=== PATIENT | female | born 1960 | race Two or more races ===

== ENCOUNTER 2025-04-22 11:45 | Emergency (ER) | payer OTHER, MEDICAID, SELFPAY ==
[2025-04-22 11:46] VITALS: BMI 25.7
[2025-04-22 12:24] VITALS: BP 134/80; PULSE 88; RESP 18; TEMP 36.9; O2SAT 100
--- NOTE | 2025-04-22 12:35 | XR_ITS ---
Examination: Knee, left , 3 views Technique: Knee AP, lateral, oblique 3 views Date and time of exam: 04/22/2025 1239 hrs. Indications: Knee pain beginning several weeks ago. Findings: Severe osteopenia Advanced tricompartment osteoarthritis. Large knee effusion No fracture Impression: Advanced tricompartment osteoarthritis
[2025-04-22] MEDS: ONDANSETRON ODT 4 MG TABRAP PO (12:49)
--- NOTE | 2025-04-22 13:23 | EDNOTE_ITS ---
<Statement entered by Debbie Escamilla MD - 05/08/25 06:12> As co-signing physician, I was present and available for consult prn. I concur with the plan and care as documented by the midlevel provider. ED Extremity Problem RME/HPI General Chief complaint: Extremity Problem,Nontraumatic Stated complaint: LEFT KNEE SWOLLEN x 2 WEEKS Time Seen by Provider: 04/22/25 12:03 Arrival date/time: 04/22/25 11:45 This is a 64-year-old female that comes into the emergency room with complaints of left knee swollen on and off for the past 2 weeks. Patient seen primary doctor and per patient they did not do anything for her knee. Patient states her knee really is not swollen anymore it was swelling previously. Patient is wearing compression stockings and this seems to help. Patient denies any other past medical history. Related Data Previous Rx's ?Medication ?Instructions ?Recorded hydrocodone 5 mg-acetaminophen 325 1 tab PO TID Dolor [place] #15 tabs 11/18/20 mg tablet pantoprazole 40 mg tablet,delayed 40 mg PO QDAY #30 ta bs 06/05/21 release (Protonix) ibuprofen 600 mg tablet 600 mg PO TID PRN pain #30 t abs 05/05/23 lidocaine 5 % topical patch 2 patch topical QDAY #15 e a 05/05/23 (Lidoderm) ibuprofen 800 mg tablet 800 mg PO Q6H PRN pain #14 t abs 04/22/25 Allergies Allergy/AdvReac Type Severity Reaction Status Date / Time No Known Allergies Allergy Verified 04/22/25 11:49 Review of Systems Review of Systems Systems Reviewed: All systems reviewed, normal except as documented Past Medical History Past Medical History CARDIAC: Positive Cardiac Disorders and Hypercholesterolemia GASTROINTESTINAL: Positive Gastrointestinal Disorders (gastritis) GENITOURINARY: Positive Renal Disease ENDOCRINE: Positive Diabetes Mellitus Type 2 Social History SMOKING STATUS: Never smoker SUBSTANCE USE: does not use ALCOHOL: Never Travel History EBOLA RISK: No ED Exam Narrative Physical exam: VITAL SIGNS: Reviewed. GENERAL APPEARANCE: Alert and interactive, follows commands, no acute distress HEAD AND FACE: Non-traumatic. ENT: PERRL, conjuctiva pink and clear, eyelid no trauma, Mucous membrane moist. NECK: Supple, nontender, no nuchal rigidity. CHEST: No tenderness, no crepitus, no paradoxical movement, no retractions. LUNGS: breathing even and unlabored HEART: Regular rate, cap refill less than 2 seconds ABDOMEN: Soft, nondistended, no guarding, nontender NEUROLOGICAL: Gross motor function intact sensory function intact, Appropriate for age. MUSCULOSKELETAL: low back nontender, full range of motion. EXTREMITIES: No redness no swelling no skin breakdown on bilateral foot and leg. Distal neurovascular status intact bilateral foot, no pain with weightbearing mild pain when bending the left knee. Mild if any swelling no deformities noted. SKIN: Color pink, dry, no rash, no lacerations, no abrasions, no contusions. Course Quality Measures none Orders Category Date Time Status XR knee LT 3V Stat Exams 04/22/25 12:35 Completed Ondansetron Odt [Zofran Odt] Med 04/22/25 12:35 Discontinued 4 mg PO X1 ONE traMADol HCL [Ultram] Med 04/22/25 12:35 Discontinued 50 mg PO X1 ONE Vital Signs Vital signs: Vital Signs Temperature 98.5 F 04/22/25 12:24 Pulse Rate 88 04/22/25 12:24 Respiratory Rate 18 04/22/25 12:24 Blood Pressure 134/80 H 04/22/25 12:24 Pulse Oximetry (%) 100 04/22/25 12:24 Oxygen Delivery Method Room Air 04/22/25 12:24 Extremity Problem MDM Narrative MDM Narrative:: Patient given Zofran and tramadol for pain. I explained to patient at length that we are not specialists of the knee and she would likely need to see an orthopedic surgeon. I explained to her that sometimes they can offer injections and possibly surgery. Patient told that this can be done on an outpatient basis. Patient ambulatory steady gait. Patient verbalizes plan of care and feels comfortable being discharged at this time knee x ray: Findings: Severe osteopenia Advanced tricompartment osteoarthritis. Large knee effusion No fracture Impression: Advanced tricompartment osteoarthritis Carmellaon dictation: Although this document has been carefully reviewed, there may still be some phonetic and other typographical errors. These errors are purely grammatical due to imperfections in the software program and should not be construed in any way to compromise the substance of the patient's medical care during this visit. Patient data External records reviewed:: [facility] previous records Clinical information provided by:: patient Social determinants that could affect healthcare access:: none Patient has the following chronic illnesses:: see hpi How is presenting disease/condition affected by chronic disease/condition?: no chronic disease Evaluation data The following diagnostics were reviewed and interpreted by me:: radiology exam(s) Lab and/or radiology exams considered but not ordered:: none Interpretation Summary: see note Medications / Prescriptions Medications or Prescriptions considered but not ordered:: none Medication administrations:: Medication Administration History Discontinued Medications Ondansetron HCl (Ondansetron Odt 4 Mg Tabrap) 4 mg PO X1 ONE; Protocol Stop: 04/22/25 12:36 Last Admin: 04/22/25 12:49 Dose: 4 mg Documented By: SEGUNDO Tramadol HCl (Tramadol Hcl 50 Mg Tablet) 50 mg PO X1 ONE Stop: 04/22/25 12:36 Last Admin: 04/22/25 12:49 Dose: 50 mg Documented By: SEGUNDO see mar Consultations Consultation(s) initiated? (list below): No Diagnosis Most likely diagnosis given after review of the tests above:: chronic knee pain, osteoarthritis Admission Indicated Admission indicated?: not indicated Admission Request Was there a request for admission?: No Disposition Plan Disposition Plan: Discharge Discharge Attestation Discharge Attestation: The patient and all family members were given an opportunity to ask questions and understood the discharge instructions. Discharge instructions specifically effects, indications for sooner follow up or return to the emergency department, and the expected course of current diagnosis. Patient condition: Stable Discharge Plan Plan Patient Disposition: HOME (Self Care) Patient condition on transfer: Stable Prescriptions/Referrals Prescriptions/Med Rec: New ibuprofen 800 mg tablet 800 mg PO Q6H PRN (Reason: pain) Qty: 14 0RF No Action hydrocodone-acetaminophen 5-325 mg tablet 1 tab PO TID MDD 3 Qty: 15 0RF pantoprazole [Protonix] 40 mg tablet,delayed release (DR/EC) 40 mg PO QDAY Qty: 30 0RF lidocaine [Lidoderm] 5 % adhesive patch,medicated 2 patch topical QDAY Qty: 15 0RF Rx Instructions: leave on most painful area for up to 12 hrs ibuprofen 600 mg tablet 600 mg PO TID PRN (Reason: pain) Qty: 30 0RF Referrals: Vladimir Giles PA-C [Primary Care Provider] - In 1 week Problem List Clinical Impression: Chronic knee pain, Osteoarthritis Patient/Caregiver Discharge Instructions Discharge Activity: activity as tolerated Education Materials: ED RICE, Osteoarthritis Additional Instructions: Katelyn un enoch con mccabe medico de cabecera en las proximas 24-48 horas. Regrese a la lin de emergencias si hay evidencia de que los signos o sintomas empeoran. Print Language: Divehi Stand Alone Forms: Cassandra Award Info., Patient Portal Info Letter PA/TRAINING FACILITATOR Supervising Physician PA/TRAINING FACILITATOR Supervising Physician: kelly
== END 2025-04-22 14:01 | disposition home or self-care (01) ==
PROVIDERS: Emergency Provider Emergency Medicine; PCP Physician Assistant
DX: M17.12 Unilateral primary osteoarthritis, left knee (principal)
CPT/HCPCS: 73562; 99283; Q0162; A9270

== ENCOUNTER 2025-04-25 19:18 | Emergency (ER) | payer OTHER, MEDICAID, SELFPAY ==
[2025-04-25 20:35] VITALS: BP 159/75; PULSE 83; RESP 17; TEMP 37.2; O2SAT 97; BMI 25.2
--- NOTE | 2025-04-25 20:48 | EDNOTE_ITS ---
ED Extremity Problem RME/HPI General Chief complaint: Extremity Problem,Nontraumatic Stated complaint: LEFT KNEE PAIN AFTER PAIN INJECTION Time Seen by Provider: 04/25/25 20:45 Arrival date/time: 04/25/25 19:18 64F with history of DM and GERD presents to ED with L knee pain after some kind of injection there by PCP today. Patient was here recently with chronic L knee pain and XR showed severe OA. Limitations: no limitations Related Data Previous Rx's ?Medication ?Instructions ?Recorded hydrocodone 5 mg-acetaminophen 325 1 tab PO TID Dol[place]ve #15 tabs 11/18/20 mg tablet pantoprazole 40 mg tablet,delayed 40 mg PO QDAY #30 ta bs 06/05/21 release (Protonix) ibuprofen 600 mg tablet 600 mg PO TID PRN pain #30 t abs 05/05/23 lidocaine 5 % topical patch 2 patch topical QDAY #15 e a 05/05/23 (Lidoderm) ibuprofen 800 mg tablet 800 mg PO Q6H PRN pain #14 t abs 04/22/25 Allergies Allergy/AdvReac Type Severity Reaction Status Date / Time No Known Allergies Allergy Verified 04/22/25 11:49 Review of Systems Review of Systems Systems Reviewed: All systems reviewed, normal except as documented Constitutional Constitutional: Reports system reviewed and no additional complaints, except as documented, Denies fever(s) and Denies headache(s) ENT Ears, Nose, Mouth, and Throat: Denies disequilibrium and Denies headache(s) Cardiovascular Cardiovascular: Reports system reviewed and no additional complaints, except as documented, Denies chest pain and Denies dyspnea Respiratory Respiratory: Reports system reviewed and no additional complaints, except as documented, Denies cough and Denies dyspnea Gastrointestinal Gastrointestinal: Reports system reviewed and no additional complaints, except as documented, Denies abdominal pain, Denies nausea and Denies vomiting Musculoskeletal Musculoskeletal: Reports as per HPI and Reports arthralgias Neurologic Neurologic: Reports system reviewed and no additional complaints, except as documented, Denies confusion, Denies disequilibrium and Denies headache(s) Psychiatric Psychiatric: Denies confusion Past Medical History Past Medical History CARDIAC: Positive Cardiac Disorders and Hypercholesterolemia RESPIRATORY: Negative Asthma GASTROINTESTINAL: Positive Gastrointestinal Disorders (gastritis) GENITOURINARY: Positive Renal Disease ENDOCRINE: Positive Diabetes Mellitus Type 2 HEMATOLOGIC: Negative Sickle Cell Disease Social History SMOKING STATUS: Never smoker SUBSTANCE USE: does not use ED Exam General Limitations: Present no limitations General appearance: Present alert and in no apparent distress Head Head exam: Present atraumatic Eye Eye exam: Present normal appearance, PERRL and EOMI ENT ENT exam: Present normal exam, normal oropharynx and mucous membranes moist Neck Neck exam: Present normal inspection, full ROM and trachea midline Chest Chest inspection: Present normal inspection and symmetric chest wall rise Respiratory Respiratory exam: Present normal lung sounds bilaterally Cardiovascular Cardiovascular exam: Present regular rate, normal rhythm and normal heart sounds Abdominal Exam Abdominal exam: Present soft and normal bowel sounds Extremities Exam Extremities exam: Present full ROM Expanded Lower Extremity Exam Knee exam: Present full ROM and ecchymosis (L) Back Exam Back exam: Present normal inspection and full ROM Neurological Exam Neurological exam: Present alert, oriented X3 and CN II-XII intact Psychiatric Psychiatric exam: Present normal affect and normal mood Skin Skin exam: Present warm, dry, intact and normal color Course Quality Measures none Orders Category Date Time Status HYDROcodone*/APAP 5/325 [[place] 5/325] Med 04/25/25 20:46 Discontinued 1 tab PO X1 ONE Vital Signs Vital signs: Vital Signs Temperature 98.9 F 04/25/25 20:35 Pulse Rate 83 04/25/25 20:35 Respiratory Rate 17 04/25/25 20:35 Blood Pressure 159/75 H 04/25/25 20:35 Pulse Oximetry (%) 97 04/25/25 20:35 Oxygen Delivery Method Room Air 04/25/25 20:35 O2 at 97% on RA and WNLs Extremity Problem MDM Narrative MDM Narrative:: 64F with history of DM and GERD presents to ED with L knee pain after some kind of injection there by PCP today. Patient was here recently with chronic L knee pain and XR showed severe OA. Physical exam reveals no some bruising around L knee, but no obvious swelling or redness. ROM and gait intact. Patient is afebrile, calm, and alert. Meds and peer financial counselor given. Patient data External records reviewed:: [facility] previous records Clinical information provided by:: patient Social determinants that could affect healthcare access:: none Patient has the following chronic illnesses:: DM and GERD How is presenting disease/condition affected by chronic disease/condition?: exacerbated by Evaluation data The following diagnostics were reviewed and interpreted by me:: other (specify) (none) Lab and/or radiology exams considered but not ordered:: not ordered Interpretation Summary: n/a Medications / Prescriptions Medications or Prescriptions considered but not ordered:: ordered Medication administrations:: Medication Administration History Discontinued Medications Hydrocodone Bitart/Acetaminophen (Hydrocodone/Apap 5/325 Tablet) 1 tab PO X1 ONE Stop: 04/25/25 20:47 above Consultations Consultation(s) initiated? (list below): No Diagnosis Extremity Problem Differential Diagnosis: herpes zoster, gout, cellulitis, superficial thrombophlebitis, deep venous thrombosis of upper extremity, lower extremity edema, deep vein thrombosis of lower extremity and other (knee pain, OA) Most likely diagnosis given after review of the tests above:: knee pain, OA Admission Indicated Admission indicated?: not indicated Admission Request Was there a request for admission?: No Disposition Plan Disposition Plan: Discharge Discharge Attestation Discharge Attestation: The patient and all family members were given an opportunity to ask questions a nd understood the discharge instructions. Discharge instructions specifically effects, indications for sooner follow up or return to the emergency department, and the expected course of current diagnosis. Patient condition: Stable Discharge Plan Plan Patient Disposition: HOME (Self Care) Discharge Disposition comment: Stable Prescriptions/Referrals Prescriptions/Med Rec: No Action hydrocodone-acetaminophen 5-325 mg tablet 1 tab PO TID MDD 3 Qty: 15 0RF pantoprazole [Protonix] 40 mg tablet,delayed release (DR/EC) 40 mg PO QDAY Qty: 30 0RF ibuprofen 800 mg tablet 800 mg PO Q6H PRN (Reason: pain) Qty: 14 0RF lidocaine [Lidoderm] 5 % adhesive patch,medicated 2 patch topical QDAY Qty: 15 0RF Rx Instructions: leave on most painful area for up to 12 hrs ibuprofen 600 mg tablet 600 mg PO TID PRN (Reason: pain) Qty: 30 0RF Problem List Clinical Impression: Osteoarthritis, Knee pain Patient/Caregiver Discharge Instructions Education Materials: ED Knee Pain of Uncertain Cause Additional Instructions: Please follow-up with PCP within 24-48 hours and return immediately if symptoms worsen. If problem persists, recommend outpatient PT and/or MRI follow-up. In the meantime, rest, use ice/heat, and/or compression. Print Language: [place]ese Stand Alone Forms: Patient Portal Info Letter RAMONITA/DENISE Supervising Physician RAMONITA/DENISE Supervising Physician: Dr. Prieto
[2025-04-25] MEDS: HYDROcodone/APAP 5/325 TABLET 1 TAB PO (21:19)
== END 2025-04-25 21:21 | disposition home or self-care (01) ==
PROVIDERS: Emergency Provider Emergency Medicine; PCP Physician Assistant
DX: M17.12 Unilateral primary osteoarthritis, left knee (principal); M25.562 Pain in left knee
CPT/HCPCS: 99282; A9270